=== PATIENT | female | born 1935 | race Caucasian/White ===

== ENCOUNTER 2019-05-22 05:21 | Day surgery (SDC) | payer MEDICARE, BC ==
[~2019-05-22] VITALS: Ht 157.5 cm; Wt 76.7 kg
[~2019-05-22 05:21] MED LIST: ALDACTONE25 MG PO; COZAAR50 MG PO; ELIQUIS2.5 MG; GLIMEPIRIDE4 MG; ISOSORBIDE MONO60 M1 PO; K-TAB10 MEQ PO; LANTUS SQ; NEURONTIN 300300 MG PO; PREDNISONE5 MG PO; PROTONIX40 MG PO; SYNTHROID75 MCG PO; TOPROL XL100 MG; TORSEMIDE20 MG PO; VITAMIN B12 IM
[2019-05-22 06:26] LABS: ANION GAP 11.8 mmol/L (8-16); CALCIUM 9.3 mg/dL (8.5-10.1); CARBON DIOXIDE 29.6 mmol/L (21.0-32.0); CREATININE - SERUM 1.6 mg/dL (0.6-1.3); POTASSIUM - SERUM 4.4 mmol/L (3.5-5.1)
[2019-05-22 06:34] VITALS: Ht 157.5 cm; Wt 76.7 kg
[2019-05-22 07:33] LABS: BASOPHILS 0.3 % (0-2); EOSINOPHILS 2.1 % (0-7); HEMATOCRIT 40.7 % (36.0-48.0); HEMOGLOBIN 12.7 g/dL (12-16); IMMATURE GRANULOCYTES 0.3 % (0-5); LYMPHOCYTES 39.1 % (15-50); MCH 29.2 pg (26.0-34.0); MCHC 31.2 g/dL (31.0-37.0); MCV 93.6 fL (80.0-100.0); MEAN PLATELET VOLUME 10.9 fL (7.4-10.4); MONOCYTES 8.2 % (2-11); PLATELET COUNT 231 10x3/uL (130-400); RBC 4.35 10x6/uL (4.00-5.40); RDW 14.4 % (11.5-14.5); WBC 7.2 10x3/uL (4.8-10.8)
--- NOTE | 2019-05-22 09:02 | NUR ---
DC INSTRUCTIONS GIVEN TO PT/SPOUSE. STATE UNDERSTANDING. DC'D IV CATH FULLY INTACT.
--- NOTE | 2019-05-22 09:07 | NUR ---
PT LEFT UNIT VIA WC AT 0907
--- NOTE | 2019-05-22 09:20 | OP ---
PATIENT NAME: ADINA GILBERT MEDICAL RECORD: [id number] :37 LOCATION:D.OPS ADMISSION DATE: SURGEON: RAÚL BA MD DATE OF OPERATION: 05/22/2019 SURGEON: Raúl Ba MD ANESTHESIA: TIVA by Teresa Burdick CRNA DIAGNOSIS: Urethral stricture. PROCEDURE: Cystoscopy, hydrodistention of the bladder, urethral stricture dilation. FINDINGS: Urethral stricture. On cystoscopy, there were single ureteral orifices bilaterally. There is a trabeculated bladder with no bladder tumors. Diffuse bladder inflammation is seen. On pelvic examination, she has rectocele, grade II [place]-Walker scale. ESTIMATED BLOOD LOSS: None. CLINICAL HISTORY: This is an 83-year-old female, who complains of difficulty voiding with a sense of incomplete bladder emptying. This has been a problem for the past 6 months. She has to strain hard in order to void. There is lot of hesitancy, before she can void. The flow is very slow and she has to double void to fully empty. She does not have any stress incontinence and she still has her uterus. It is likely that she has urethral stricture from being postmenopausal. She comes today to have the urethral stricture dilated. She is not allergic to any medication. 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 DESCRIPTION OF PROCEDURE: The patient was given IV sedation. She was then placed into lithotomy position. She was prepped and draped. The 17-Ugandan cystoscope with 30-degree lens was used for visualization. The 17-Ugandan scope went in with some difficulty due to urethral stricture. However, we finally overcame the stricture and got into the bladder. The findings are as outlined above. Since the bladder was a bit inflamed and she might have a degree of interstitial cystitis, I decided to hydrodistend the bladder to 500 mL. After distending the bladder for about 1-2 minutes, the bladder was emptied. A series of urethral sounds were then used to dilate the urethra to 32-Ugandan. The bladder was fully empty and I will see the patient in followup in 2 weeks' time to check on her voiding symptoms. TRANSINT:[id number] Voice Confirmation ID: [id number] DOCUMENT ID: [id number] RAÚL BA MD at 0920 CC: [id number] DICTATION DATE: 05/22/19 3661 PERSONAL LINES APPRAISER: 05/22/19 0833 [facility] [place] 05/22/19 [facility] [address] [place] [address]
== END 2019-05-22 09:07 | disposition home or self-care (01) ==
LOC: D.OPS 05:21 → D.PAN 09:55 → D.OPS 09:55 → D.PAN 10:30 → D.OPS 11:00 → D.PAN 11:00
PROVIDERS: Anesthesiology; ATTEND Urology
DX: N35.92 Unspecified urethral stricture, female (principal); N95.2 Postmenopausal atrophic vaginitis; I10 Essential (primary) hypertension; E78.00 Pure hypercholesterolemia, unspecified; I25.2 Old myocardial infarction; R39.198 Other difficulties with micturition; E11.9 Type 2 diabetes mellitus without complications